=== PATIENT | male | born 1950 | race Caucasian/White ===

== ENCOUNTER 2018-08-16 09:01 | Emergency (ER) | payer MEDICARE ==
[~2018-08-16] VITALS: Ht 177.8 cm; Wt 86.0 kg
[2018-08-16] MEDS ORDERED: SODIUM CHLORIDE 0.9% 1,000 ML IV ONE (09:12)
[2018-08-16] MEDS ORDERED: MORPHINE SULFATE 4 MG/ML CPJ (NOT FOR IM USE) IV ONE (09:15)
[2018-08-16] MEDS ORDERED: ONDANSETRON HCL 4MG/2ML INJ IV ONE (09:15)
[2018-08-16 09:51] LABS: BASOPHILS % 0.8 % (0.0-2.0); CHLORIDE 107 mEq/L (98-107); EOSINOPHILS % 1.9 % (0.0-5.0); HEMATOCRIT. 44.6 % (42.0-52.0); HEMOGLOBIN. 15.3 g/dL (14.0-18.0); LYMPHOCYTES % 27.3 % (20.0-50.0); MEAN CORPUSCULAR HEMOGLOBIN 30.5 pg (28.0-32.0); MEAN CORPUSCULAR VOLUME 88.7 fL (80.0-94.0); MEAN PLATELET VOLUME 9.3 fl (7.4-10.4); MONOCYTES % 6.5 % (2.0-8.0); NEUTROPHILS % 63.5 % (40.0-76.0); PLATELET 184 x1000/uL (130-400); RED BLOOD CELL COUNT 5.03 mill/uL (4.7-6.1); RED CELL DISTRIBUTION WIDTH 14.2 % (11.6-14.6)
[2018-08-16 11:00] VITALS: BP 158/78
[2018-08-16] MEDS ORDERED: IOHEXOL-350 100 ML BOTTLE ONE (14:27)
== END 2018-08-16 12:40 | disposition home or self-care (01) ==
LOC: ER 09:15
DX: S29.9XXA Unspecified injury of thorax, initial encounter (principal); I10 Essential (primary) hypertension; M50.10 Cervical disc disorder with radiculopathy, unspecified cervical region; V43.52XA Car driver injured in collision with other type car in traffic accident, initial encounter; Y93.89 Activity, other specified; Y92.488 Other paved roadways as the place of occurrence of the external cause
CPT/HCPCS: 36415; 71045; 71275; 72125; 74174; 80053; 83880; 84484; 85025; 85610; 85730; 93005; 96374; 96375; 99284; J2270; J2405; J7030; Q9967

== ENCOUNTER 2024-10-07 16:01 | Emergency (ER) | payer SELFPAY ==
[~2024-10-07] VITALS: Ht 175.3 cm; Wt 72.6 kg
[2024-10-07 16:11] VITALS: O2SAT 96
[2024-10-07] MEDS: ACETAMINOPHEN 325MG TABLET PO ONE (19:08)
[2024-10-07] MEDS ORDERED: LIDO700A30 TP (19:08)
[2024-10-07] MEDS: LIDOCAINE 5% PATCH TOP SCH (19:09)
[2024-10-07] MEDS: KETOROLAC 15MG/ML VIAL IM ONE (19:09)
[2024-10-07 19:11] VITALS: BP 173/95; PULSE 96; RESP 18; TEMP 36.6; O2SAT 96
== END 2024-10-07 19:21 | disposition home or self-care (01) ==
LOC: ER 16:01
DX: M54.9 Dorsalgia, unspecified (principal); E78.00 Pure hypercholesterolemia, unspecified; I10 Essential (primary) hypertension; R51.9 Headache, unspecified
CPT/HCPCS: 99285; 70450; 72125; 96372; J1885